=== PATIENT | female | born 1960 | race Caucasian/White ===

== ENCOUNTER 2020-02-15 16:54 | Inpatient (IN) | payer OTHER ==
[~2020-02-15] VITALS: Ht 157.5 cm; Wt 104.3 kg
--- NOTE | 2020-02-15 17:27 | NUR ---
Patient came in to the er c/o generalized weakness x 5 days and sensitivity to light, hypotensive E BUSINESS SPECIALIST. On room air, breathing evenly and unlabored. connected to the monitor and pulse ox. kept comfortable, will continue to monitor accordingly.
[2020-02-15] MEDS ORDERED: IV NS 0.9% 1,000 ML BAG IV ONE (17:30)
[2020-02-15 17:34] LABS: BASOPHILS % (AUTO) 0.4 % (0.0-2.0); EOSINOPHILS % (AUTO) 0.7 % (0.0-6.0); HEMATOCRIT 40 % (33-45); LYMPHOCYTES # (AUTO) 1.3 /CMM (0.8-4.8); LYMPHOCYTES % (AUTO) 24.1 % (20.0-44.0); MEAN CORPUSCULAR HGB CONC 33 g/dl (31.0-36.0); MEAN CORPUSCULAR VOLUME 99 fL (82-100); MONOCYTES # (AUTO) 0.7 /CMM (0.1-1.30); MONOCYTES % (AUTO) 12.9 % (2.0-12.0); NEUTROPHILS # (AUTO) 3.3 /CMM (1.8-8.9); NEUTROPHILS % (AUTO) 61.9 % (43.0-81.0); PLATELET COUNT (AUTO) 108 /CMM (150-450); RED BLOOD CELL COUNT(AUTO) 4.02 MIL/uL (4.0-5.2); WHITE BLOOD COUNT (AUTO) 5.3 K/uL (4.3-11.0)
[2020-02-15 17:44] LABS: CALCIUM, SERUM 9.5 mg/dL (8.5-10.1); CARBON DIOXIDE 22 mmol/L (21-32); CHLORIDE 97 mmol/L (98-107); CREATININE 3.2 mg/dL (0.6-1.3); GLUCOSE 88 mg/dL (74-106); POTASSIUM 3.6 mmol/L (3.5-5.1); SODIUM SERUM 136 mmol/L (136-145); UREA NITROGEN, BLOOD 50 mg/dL (7-18)
[2020-02-15 17:49] LABS: ALANINE AMINOTRANSFERASE 187 U/L (12-78); ALBUMIN 3.8 g/dL (3.4-5.0); ALKALINE PHOSPHATASE 158 U/L (46-116); ASPARTATE AMINOTRANSFERASE 315 U/L (15-37); BILIRUBIN,DIRECT 0.7 mg/dL (0.0-0.2); BILIRUBIN,TOTAL 1.2 mg/dL (0.2-1.0); TOTAL PROTEIN, SERUM 8.2 g/dL (6.4-8.2)
--- NOTE | 2020-02-15 18:14 | NUR ---
wheeled patient to ct scan
--- NOTE | 2020-02-15 18:19 | NUR ---
patient came back from ct
[2020-02-15 18:20] LABS: B-TYPE NATRIURETIC PEPTIDE 1142 PG/ML (0-125); MAGNESIUM 2.3 mg/dL (1.8-2.4); PHOSPHORUS 3.2 mg/dL (2.5-4.9)
[2020-02-15] MEDS ORDERED: TRAZ-252 PO (18:35)
[2020-02-15] MEDS ORDERED: ERGO500014 PO (18:35)
[2020-02-15] MEDS ORDERED: ACET-73 PO (18:35)
[2020-02-15] MEDS ORDERED: ATOR10TA PO (18:35)
[2020-02-15] MEDS ORDERED: GABA800T11 PO (18:35)
[2020-02-15] MEDS ORDERED: SERT100T12 PO (18:35)
[2020-02-15] MEDS ORDERED: LOSA100T31 PO (18:35)
[2020-02-15 18:50] LABS: SERUM AMMONIA 47 umol/L (11-32)
[2020-02-15] MEDS ORDERED: IV NS 0.9% 1,000 ML IV ONE (19:00)
[2020-02-15] MEDS ORDERED: PIPERACILLIN /TAZOBACTAM 3.375 G in IV D5W 50 ML IV ONE (19:00)
[2020-02-15] MEDS ORDERED: VANCOMYCIN HCL 1 GM in IV D5W 260 ML IV ONE (19:00)
--- NOTE | 2020-02-15 19:25 | NUR ---
CLINICALS AND MOVE PACKET TURNED IN.
--- NOTE | 2020-02-15 19:26 | NUR ---
CALL FROM LAB, COVID NEGATIVE.
[2020-02-15 19:49] LABS: APPEARANCE,URINE Slightly Cloudy (CLEAR); BILIRUBIN,URINE SMALL (NEGATIVE); BLOOD, URINE Large Ery/uL (NEGATIVE); COLOR,URINE Yellow (YELLOW); KETONES,URINE 15 (NEGATIVE); LEUKOCYTE ESTERASE ,URINE Trace (NEGATIVE); NITRITE, URINE Negative (NEGATIVE); PH,URINE 5.5 (5.0-8.0); PROTEIN,URINE >=300 mg/dl (NEGATIVE); UGLUCOSE Negative (NEGATIVE)
[2020-02-15 20:09] LABS: BACTERIA,URINE 2+ /HPF (None Seen)
[2020-02-15 20:11] LABS: CALCIUM OXALATE CRYSTALS,UR Few /HPF (None Seen); SQUAMOUS EPITHELIAL CELL,UR Moderate /HPF (None Seen); URINE AMORPHOUS URATE Few /HPF (None Seen)
--- NOTE | 2020-02-15 20:18 | NUR ---
CALLED NURSING SUP FOR BED
--- NOTE | 2020-02-15 20:20 | NUR ---
SPOKE WITH ADULT MANAGER SURJIT. ISAIAH'Jaden CHARLTON FOR PT TO STAY AT [facility]
--- NOTE | 2020-02-15 20:22 | NUR ---
NOTED HYPOTENSION. MARSII DEGRASSE, EMPLOYEE BENEFITS MANAGER MADE AWARE. PT AAOX4. RESTING COMFORTABLY IN BED. PT STILL ON MONITOR, WILL CONTINUE TO MONITOR
--- NOTE | 2020-02-15 20:50 | NUR ---
MYAH HUFFMAN AT BEDSIDE FOR EVALUATION
[2020-02-15] MEDS ORDERED: MISCELLANEOUS MED 1 EA EA PO PRN (21:30)
[2020-02-15] MEDS ORDERED: LACTULOSE 10 G/15 ML UDC (PYXIS) PO ONE (21:30)
[2020-02-16] VITALS (82 sets, daily range): BP systolic 80–140; BP diastolic 37–93
[2020-02-16] MEDS ORDERED: PIPERACILLIN /TAZOBACTAM 4.5 G in IV D5W 100 ML IV SCH ×2
--- NOTE | 2020-02-16 01:20 | NUR ---
BED ASSIGNMENT 256
--- NOTE | 2020-02-16 01:30 | NUR ---
REPORT GIVEN TO AYDEN HUERTA FOR CK
--- NOTE | 2020-02-16 01:50 | NUR ---
RECONSTRUCTIVE SURGEON NOTE PATIENT ARRIVED TO UNIT AROUND THIS TIME VIA VANITA. AWAKE, ALERT, ORIENTED X4. FULL CODE. DIAGNOSIS OF HYPOTENSION. BP IS 91/58 AT THIS TIME. RAPID COVID TEST IS NEGATIVE. ABLE TO MAKE NEEDS KNOWN. SPEECH IS CLEAR. PERRLA. PATIENT IS CALM AND COOPERATIVE. SKIN IS DRY AND WARM TO TOUCH, INTACT. AFEBRILE. CAPILLARY REFILL IS < 3 SECONDS. O2 SAT IS 100% ON ROOM AIR. BREATHING IS EVEN AND UNLABORED. LUNG SOUNDS ARE CLEAR. IV SITES ON LEFT HAND GAUGE 20 AND RAC GAUGE 18 IS CLEAN, PATENT, AND FLUSHED. PATIENT IS CONTINENT OF BOWEL AND BLADDER. COMMODE AT BEDSIDE. PATIENT HAS UTI DIAGNOSIS AT THIS TIME. PER ER REPORT, PATIENT IS AMBULATORY WITH MINIMAL ASSISTANCE. PATIENT IS ABLE TO DO ROM WITH NO DISCOMFORT. IN NO APPARENT DISTRESS NOTED AT THIS TIME. ORIENTED PATIENT TO ROOM, CALL LIGHT IS WITHIN EASY REACH. BED IS LOWERED AND LOCKED. WILL CONTINUE TO MONITOR.
--- NOTE | 2020-02-16 01:55 | NUR ---
PT TRANSFERRED TO ICU PER ACLS PROTOCOL
[2020-02-16] MEDS: IV NS 0.9% 1,000 ML IV SCH ×2 (02:27→12:12)
[2020-02-16] MEDS ORDERED: ZOSYN IVPB 2.25 G in IV D5W 50ml IV ONE (02:30)
--- NOTE | 2020-02-16 02:30 | NUR ---
MACHINE I TRIMMER NOTE - PT BELONGINGS NOTED PATIENT WITH $450.00 TAY AND TWO YELLOW RINGS. COUNTED MONEY WITH AYDEN [employer]OX WITNESS. MONEY PLACED IN DEPOSIT BAG AND STORED WITH PAYROLL CONSULTANT FOR SAFE KEEPING. BAG NUMBER IS [id number]. PATIENT REFUSED TO STORE 2 YELLOW RINGS IN DEPOSIT BAG. PATIENT VERBALIZED THAT THE TWO RINGS HOLD SENTIMENTAL VALUE AND WOULD LIKE TO KEEP THEM WITH HER.
[2020-02-16] MEDS ORDERED: LACTULOSE 10 G/15 ML UDC (PYXIS) ONE (02:41)
[2020-02-16] MEDS ORDERED: PIPERACILLIN /TAZOBACTAM 2.25 G VIAL IV ONE (02:41)
[2020-02-16] MEDS ORDERED: NOREPINEPHRINE 4 MG/4 ML AMPUL IV ONE (02:54)
[2020-02-16 05:24] LABS: BASOPHILS % (AUTO) 0.6 % (0.0-2.0); EOSINOPHILS % (AUTO) 2.1 % (0.0-6.0); HEMATOCRIT 37 % (33-45); LYMPHOCYTES # (AUTO) 1.3 /CMM (0.8-4.8); LYMPHOCYTES % (AUTO) 35.4 % (20.0-44.0); MEAN CORPUSCULAR HGB CONC 33 g/dl (31.0-36.0); MEAN CORPUSCULAR VOLUME 98 fL (82-100); MONOCYTES # (AUTO) 0.5 /CMM (0.1-1.30); MONOCYTES % (AUTO) 15.4 % (2.0-12.0); NEUTROPHILS # (AUTO) 1.6 /CMM (1.8-8.9); NEUTROPHILS % (AUTO) 46.5 % (43.0-81.0); PLATELET COUNT (AUTO) 80 /CMM (150-450); RED BLOOD CELL COUNT(AUTO) 3.77 MIL/uL (4.0-5.2); WHITE BLOOD COUNT (AUTO) 3.5 K/uL (4.3-11.0)
[2020-02-16 05:39] LABS: ALBUMIN 3.3 g/dL (3.4-5.0); CALCIUM, SERUM 8.2 mg/dL (8.5-10.1); CREATININE 2.1 mg/dL (0.6-1.3); PHOSPHORUS 2.5 mg/dL (2.5-4.9); TOTAL PROTEIN, SERUM 7.2 g/dL (6.4-8.2)
[2020-02-16 05:40] LABS: THYROID STIMULATING HORMONE 2.126 uIU/mL (0.358-3.74)
[2020-02-16] MEDS: NOREPINEPHRINE 8 MG in IV NS 0.9% 250 ML IV PRN ×2 (06:20→14:40)
--- NOTE | 2020-02-16 06:20 | NUR ---
RN NOTE LEVOPHED IV MED STARTED FOR BP 87/50. WILL CONTINUE TO MONITOR.
[2020-02-16 07:01] LABS: NEUTROPHILS % (MANUAL) 48 (42-76)
[2020-02-16 07:02] LABS: EOSINOPHILS % (MANUAL) 2 % (0-4); LYMPHOCYTES % (MANUAL) 36 % (16-48); MONOCYTES % (MANUAL) 14 % (0-11.0)
--- NOTE | 2020-02-16 07:18 | NUR ---
PEDIATRIC CLINICAL NURSE SPECIALIST NOTE PATIENT IS STABLE AT THIS TIME. RESTING, RESPONSIVE TO VERBAL AND TACTILE STIMULI. ON LEVOPHED RUNNING AT 0.1 MCG/KG/MIN. REPORT GIVEN TO ALEXIA HENSLEY FOR CONTINUATION OF CARE.
[2020-02-16] MEDS: ONDANSETRON HCL/PF 4 MG/2 ML VIAL IVP PRN (07:46)
--- NOTE | 2020-02-16 07:50 | NUR ---
ICU/RN PT IS RESTING IN THE BED ,ON ROOM AIR ,SAT O2-96%,ON LEVOPHED DRIP.AFEBRILE.NO PAIN REPORTED AT THIS TIME IV FLUIDS INFUSING ORDERED.PT USE BEDSIDE COMMODE.C/O OF NAUSEA .
[2020-02-16] MEDS: PANTOPRAZOLE 40 MG VIAL IV SCH (08:13)
[2020-02-16] MEDS: SERTRALINE HCL 50 MG TABLET PO SCH (08:13)
[2020-02-16] MEDS ORDERED: Thiamine 100 MG in IV D5W 50 ML IV SCH (09:00)
[2020-02-16] MEDS ORDERED: POTASSIUM CHLORIDE 20 MEQ TAB.PRT.SR PO ONE (09:00)
--- NOTE | 2020-02-16 09:00 | NUR ---
ICU/RN AM MEDS GIVEN ORDERED.ZOFRAN IV WAS GIVEN.LEVOPHED WAS STOP FOR SOME TIME.BP DECREASED .LEVOPHED DRIP RESTARTED.CONTINUE MONITORING
[2020-02-16] MEDS: MULTIVITAMINS,THERAGRAN 1 UDTAB TABLET PO SCH (09:17)
[2020-02-16] MEDS: FOLIC ACID 1 MG TABLET PO SCH (09:17)
[2020-02-16] MEDS: LORAZEPAM INJ 2 MG/ML VIAL IV PRN ×2 (10:17→20:46)
[2020-02-16] MEDS: PIPERACILLIN /TAZOBACTAM 2.25 G in IV D5W 50 ML IV SCH ×2 (10:17→17:47)
[2020-02-16] MEDS: HYDROCORTISONE SOD SUCCINATE 100 MG/2 ML VIAL IV SCH ×3 (10:27→20:46)
[2020-02-16] MEDS ORDERED: VANCOMYCIN 1.5 GM in IV D5W 500 ML IV ONE (11:00)
[2020-02-16] MEDS ORDERED: PIPERACILLIN /TAZOBACTAM 2.25 G in IV D5W 50 ML IV SCH (12:00)
--- NOTE | 2020-02-16 20:00 | NUR ---
RN OPENING NOTE PT RECEIVED IN THE BED. PT IS A/A/O X4, ON RA SATING 94%. PT IS ON LEVOPHED O.O5 MCG/KG/MIN RUNNING.SAFETY MEASURES IN PLACE CALL LIGHT IN REACH, BED AT LOWEST POSITION, SIDE RAILS UP X2.
--- NOTE | 2020-02-16 21:00 | NUR ---
RN NOTE LEVOPHED TITRATED DOWN FROM 0.05 MCG/KG/MIN TO 0.03 MCG/KG/MIN.
[2020-02-16] MEDS ORDERED: ATORVASTATIN 10 MG TABLET PO SCH (22:00)
[2020-02-17] VITALS (42 sets, daily range): BP systolic 82–168; BP diastolic 36–112
[2020-02-17] MEDS: PIPERACILLIN /TAZOBACTAM 2.25 G in IV D5W 50 ML IV SCH ×2 (00:33→06:06)
[2020-02-17] MEDS: IV NS 0.9% 1,000 ML IV SCH ×2 (01:52→12:41)
[2020-02-17] MEDS: LORAZEPAM INJ 2 MG/ML VIAL IV PRN ×3 (03:36→21:50)
[2020-02-17 05:09] LABS: BASOPHILS % (AUTO) 0.2 % (0.0-2.0); EOSINOPHILS % (AUTO) 0.2 % (0.0-6.0); HEMATOCRIT 36 % (33-45); HEMOGLOBIN 11.9 g/dL (11.5-14.8); LYMPHOCYTES # (AUTO) 0.4 /CMM (0.8-4.8); LYMPHOCYTES % (AUTO) 13.3 % (20.0-44.0); MEAN CORPUSCULAR HGB CONC 33 g/dl (31.0-36.0); MEAN CORPUSCULAR VOLUME 97 fL (82-100); MONOCYTES # (AUTO) 0.2 /CMM (0.1-1.30); MONOCYTES % (AUTO) 7.6 % (2.0-12.0); NEUTROPHILS # (AUTO) 2.1 /CMM (1.8-8.9); NEUTROPHILS % (AUTO) 78.7 % (43.0-81.0); PLATELET COUNT (AUTO) 73 /CMM (150-450); RED BLOOD CELL COUNT(AUTO) 3.69 MIL/uL (4.0-5.2); WHITE BLOOD COUNT (AUTO) 2.6 K/uL (4.3-11.0)
[2020-02-17 05:18] LABS: APPEARANCE,URINE SL CLOUDY (CLEAR); BILIRUBIN,URINE NEGATIVE (NEGATIVE); BLOOD, URINE SMALL Ery/uL (NEGATIVE); COLOR,URINE YELLOW (YELLOW); KETONES,URINE NEGATIVE (NEGATIVE); LEUKOCYTE ESTERASE ,URINE TRACE (NEGATIVE); NITRITE, URINE NEGATIVE (NEGATIVE); PROTEIN,URINE TRACE mg/dl (NEGATIVE); UGLUCOSE 500 MG/DL mg/dL (NEGATIVE); UROBILINOGEN,URINE 0.2 EU/dL (0.2)
[2020-02-17] MEDS: HYDROCORTISONE SOD SUCCINATE 100 MG/2 ML VIAL IV SCH ×3 (05:34→21:31)
[2020-02-17 05:37] LABS: ALBUMIN 3.2 g/dL (3.4-5.0); BILIRUBIN,TOTAL 0.9 mg/dL (0.2-1.0); CALCIUM, SERUM 8.7 mg/dL (8.5-10.1); CREATININE 1.4 mg/dL (0.6-1.3); MAGNESIUM 1.6 mg/dL (1.8-2.4); PHOSPHORUS 1.2 mg/dL (2.5-4.9); TOTAL PROTEIN, SERUM 7.3 g/dL (6.4-8.2)
[2020-02-17 05:37] LABS: CREATININE, URINE 39.7 MG/DL (30.0-125.0); URINE TOTAL PROTEIN 56.6 mg/dL (0-11.9)
[2020-02-17 06:10] LABS: BACTERIA,URINE Few /HPF (None Seen); EOSINOPHIL,URINE None Seen; SQUAMOUS EPITHELIAL CELL,UR Moderate /HPF (None Seen)
[2020-02-17 06:14] LABS: LYMPHOCYTES % (MANUAL) 12 % (16-48); NEUTROPHILS % (MANUAL) 77 (42-76)
[2020-02-17 06:15] LABS: EOSINOPHILS % (MANUAL) 3 % (0-4); MONOCYTES % (MANUAL) 8 % (0-11.0)
--- NOTE | 2020-02-17 07:15 | NUR ---
RN CLOSING NOTE PT REMAINED STABLE DURING MY SHIFT. REPORT GIVEN TO INCOMING SHIFT FOR CK.
--- NOTE | 2020-02-17 08:00 | NUR ---
RN OPENING NOTES RECEIVED PATIENT SLEEPING IN BED COMFORTABLY, DID NOT WANT TO BE DISRUPTED. PT IS AOX4, VERBAL, AND AMBULATORY WITH REST. TELE MONITOR SHOWING SR SB SHE IS ON 2L OF OXYGEN VIA NC, SATING AT 96%, NO RESP DISTRESS OR SOB PRESENT. SKIN IS INTACT. IV SITES ON ASHKAN PICC AND L HAND 20 G ARE PATENT AND INTACT, INFUSING NS AT 75 ML.HR. SAFETY MEASURES HAVE BEEN IMPLEMENTED, CALL LIGHT IS WITHIN REACH, BED IS IN LOWEST AND LOCKED POSITION, SIDE RIALS UP X2, WILL CONTINUE TO MONITOR FOR ANY CHANGES.
[2020-02-17] MEDS: SERTRALINE HCL 50 MG TABLET PO SCH (08:53)
[2020-02-17] MEDS: PANTOPRAZOLE 40 MG VIAL IV SCH (08:53)
[2020-02-17] MEDS: FOLIC ACID 1 MG TABLET PO SCH (08:53)
[2020-02-17] MEDS: THIAMINE HCL 100 MG TABLET PO SCH (08:53)
[2020-02-17] MEDS: MULTIVITAMINS,THERAGRAN 1 UDTAB TABLET PO SCH (08:53)
[2020-02-17] MEDS: Magnesium 1GM/D5W 100ML PREMIX 100 ML IV SCH ×2 (09:43→11:21)
[2020-02-17] MEDS: NEUTRA PHOS 1 POWD.PACKET PO SCH ×2 (09:47→16:33)
--- NOTE | 2020-02-17 10:00 | NUR ---
RN NOTES RECEIVED PT FROM AYDEN TONEY. PT A/O. ON 02 VIA MN. HOB ELEVATED. NO RESPIRATORY DISTRESS NOTED. NO SOB NOTED. PT COMFORTABLE. WILL TAKE OVER PT'S CARE. PT COMFORTABLE
--- NOTE | 2020-02-17 10:26 | NUR ---
RN NOTES GAVE HAND OFF REPORT TO MATT HENSLEY FOR CK
[2020-02-17] MEDS: ONDANSETRON HCL/PF 4 MG/2 ML VIAL IVP PRN (11:51)
[2020-02-17] MEDS: PIPERACILLIN /TAZOBACTAM 3.375 G in IV D5W 100 ML IV SCH ×2 (12:41→21:31)
--- NOTE | 2020-02-17 18:38 | NUR ---
RN CLOSING NOTES NO SIGNIFICANT CHANGE NOTED. KEPT CLEAN AND DRY. ABLE TO REPOSITION SELF. ALL NEEDS ATTENDED AND MET. CALL LIGHT WITHIN REACH. WILL ENDORSE FOR CONTINUITY OF CARE.
--- NOTE | 2020-02-17 19:24 | NUR ---
TRANSPORTATION MECHANIC OPENING NOTES: Rec'd pt resting in bed, A&Ox4. On 2LPM NC tolerating well. No SOB or resp distress noted at this time. SR on tele monitor. LH #20 and ASHKAN PICC line patent and flushed. Dressings c/d/i. NS infusing at 75ml/hr. Pt ambulatory to bedside commode. No pain reported at this time. Safety measures in place. Will continue to monitor.
--- NOTE | 2020-02-17 20:24 | NUR ---
RN NOTE: Report given to AYDEN See for CK.
--- NOTE | 2020-02-17 20:54 | NUR ---
RN NOTE: Pt transferred to room 307-1 via ACLS protocol in stable condition.
--- NOTE | 2020-02-17 21:00 | NUR ---
TELE/ACADEMIC INTERN NOTES RECEIVED PATIENT FROM ICU TRANSFER ON BED, ALERT, ORIENTED X3, ABLE TO VERBALIZE NEEDS, RESPSIRATIONS EVEN AND UNLABORED, ON OXYGEN VIA NC AT 2 LITER, REPORTED HEADACHE AND NEEDED ATIVAN, REPORTED HAD ALCOHOL INTOXICATION AND NEEDED ATIVAN FOR S/S OF INABILITY TO RELAX. PATIENT SKIN WARM TO TOUCH, BELONGINGS CHECKES, ON PICLINE IN ASHKAN 3 LUMEN, FLUSHED FOR PATENCY. RECEIVED REPORT FROM MEDIA RELATIONS COORDINATOR. TO MONITOR. BED LOCKED, OFFERED AND PROVIDED SNACKS.
[2020-02-17] MEDS: ACETAMINOPHEN 325 MG TABLET PO PRN (21:38)
[2020-02-18] VITALS: BP 155/78
[2020-02-18] MEDS: IV NS 0.9% 1,000 ML IV SCH ×2 (02:50→16:10)
[2020-02-18 04:00] VITALS: BP 155/79
[2020-02-18] MEDS: PIPERACILLIN /TAZOBACTAM 3.375 G in IV D5W 100 ML IV SCH ×2 (04:25→12:34)
[2020-02-18] MEDS: HYDROCORTISONE SOD SUCCINATE 100 MG/2 ML VIAL IV SCH ×3 (04:25→20:11)
[2020-02-18] MEDS ORDERED: VANCOMYCIN 1.5 GM in IV D5W 500ml IV ONE (06:00)
--- NOTE | 2020-02-18 06:16 | NUR ---
307-1 TELE/RN NOTES SINUS RYTHM AT 70'S PATIENT ABLE TO SLEEP DURING THE NIGHT, ATTENDED ALL NEEDS, KEPT COMFORTABLE. MONITORED FOR ANY PAIN, SOB AND SAFETY MEASURES FOLLOWED. BED LOCKED, CALL LIGHTS WITHIN REACH, WILL MONITOR. WILL ENDORSE TO AM RN FOR CK.
[2020-02-18 06:33] LABS: EOSINOPHILS % (AUTO) 0.1 % (0.0-6.0); HEMATOCRIT 35 % (33-45); HEMOGLOBIN 11.7 g/dL (11.5-14.8); LYMPHOCYTES # (AUTO) 0.4 /CMM (0.8-4.8); LYMPHOCYTES % (AUTO) 11.9 % (20.0-44.0); MEAN CORPUSCULAR HGB CONC 34 g/dl (31.0-36.0); MEAN CORPUSCULAR VOLUME 96 fL (82-100); MONOCYTES # (AUTO) 0.3 /CMM (0.1-1.30); MONOCYTES % (AUTO) 8.7 % (2.0-12.0); NEUTROPHILS # (AUTO) 2.5 /CMM (1.8-8.9); NEUTROPHILS % (AUTO) 79.3 % (43.0-81.0); PLATELET COUNT (AUTO) 77 /CMM (150-450); RED BLOOD CELL COUNT(AUTO) 3.59 MIL/uL (4.0-5.2); WHITE BLOOD COUNT (AUTO) 3.2 K/uL (4.3-11.0)
--- NOTE | 2020-02-18 07:15 | NUR ---
MOLD WASHER OPENING NOTES RECEIVED PT ON BED. A/O X4. ON 2L O2 VIA NC WITH 98% SATURATION. NO SOB OR ACUTE RESPIRATORY DISTRESS NOTED. WITH L HAND #20 INTACT, PATENT AND FLUSHED. NS RUNNING @ 75ML/HR, INFUSING WELL. ASHKAN PICC LINE INTACT, PATENT AND FLUSHED. AMBULATORY WITH ASSIST. NO PAIN NOTED AT THIS TIME. SAFETY MEASURES OBSERVED. CALL LIGHT WITHIN REACH. BED LOCKED AND AT LOWEST POSITION. WILL CONTINUE TO MONITOR
[2020-02-18 08:00] VITALS: BP 139/90
[2020-02-18 08:06] LABS: CREATININE KINASE (CK),MB 3.7 ng/mL (0.0-5.3); PTH, INTACT 180 pg/mL (15-65)
[2020-02-18 08:39] LABS: ALBUMIN 2.9 g/dL (3.4-5.0); BILIRUBIN,TOTAL 0.7 mg/dL (0.2-1.0); CALCIUM, SERUM 8.6 mg/dL (8.5-10.1); CREATININE 1.1 mg/dL (0.6-1.3); PHOSPHORUS 1.4 mg/dL (2.5-4.9); POTASSIUM 3.6 mmol/L (3.5-5.1); TOTAL PROTEIN, SERUM 6.8 g/dL (6.4-8.2)
[2020-02-18] MEDS: SERTRALINE HCL 50 MG TABLET PO SCH (08:51)
[2020-02-18] MEDS: MULTIVITAMINS,THERAGRAN 1 UDTAB TABLET PO SCH (08:51)
[2020-02-18] MEDS: PANTOPRAZOLE 40 MG VIAL IV SCH (08:51)
[2020-02-18] MEDS: FOLIC ACID 1 MG TABLET PO SCH (08:52)
[2020-02-18] MEDS: THIAMINE HCL 100 MG TABLET PO SCH (08:54)
[2020-02-18] MEDS ORDERED: POTASSIUM PHOSPHATE MM 15 MMOL in IV NS 0.9% 250 ML IV SCH (11:00)
[2020-02-18 12:00] VITALS: BP 138/85
[2020-02-18 15:18] LABS: *SPE A/G RATIO 1.2 (0.7-1.7); *SPE ALBUMIN 3.6 g/dL (2.9-4.4); *SPE ALPHA-1-GLOBULIN 0.2 g/dL (0.0-0.4); *SPE ALPHA-2-GLOBULIN 0.9 g/dL (0.4-1.0); *SPE BETA GLOBULIN 0.8 g/dL (0.7-1.3); *SPE GLOBULIN, TOTAL 3.1 g/dL (2.2-3.9); *SPE M-SPIKE Not Observed g/dL (Not Observed); *SPEGAMMA GLOBULIN 1.2 g/dL (0.4-1.8)
[2020-02-18 16:00] VITALS: BP_SYST 140; BP_SYST 162; BP_DIAS 85; BP_DIAS 90
--- NOTE | 2020-02-18 19:21 | NUR ---
LENS GRINDER CLOSING NOTES RECEIVED PT ON BED. A/O X4. ON 2L O2 VIA NC WITH 98% SATURATION. NO SOB OR ACUTE RESPIRATORY DISTRESS NOTED. WITH L HAND #20 INTACT, PATENT AND FLUSHED. NS RUNNING @ 75ML/HR, INFUSING WELL. ASHKAN PICC LINE INTACT, PATENT AND FLUSHED. AMBULATORY. NO PAIN NOTED AT THIS TIME. ALL MEDS GIVEN ORDERED. ALL NEEDS ATTENDED. SAFETY MEASURES OBSERVED. CALL LIGHT WITHIN REACH. BED LOCKED AND AT LOWEST POSITION. WILL ENDORSE TO CARE ATTENDANT FOR CK
--- NOTE | 2020-02-18 19:40 | NUR ---
MS RN NOTE: Patient in bed awake, alert, and oriented x4. Patient able to make needs known. PICC line access noted on left upper arm. On room air and breathing well, no SOB, no respiratory distress noted. Oxygen 2L nasal canula on side PRN. Safety precaution in place, bed is in the lowest level, bed is locked, side rails x2 are up, and call light is within reach. Will continue to monitor.
[2020-02-18 20:00] VITALS: BP 154/62
[2020-02-18] MEDS ORDERED: LEVOFLOXACIN (250MG) 250 MG TABLET PO SCH (20:00)
[2020-02-18] MEDS: LORAZEPAM INJ 2 MG/ML VIAL IV PRN (20:11)
--- NOTE | 2020-02-18 20:11 | NUR ---
MS RN NOTE: Patient verbalizes anxiety. Administered PRN Ativan per MD order. Will continue to monitor.
[2020-02-18] MEDS: ACETAMINOPHEN 325 MG TABLET PO PRN (23:54)
--- NOTE | 2020-02-18 23:54 | NUR ---
MS RN NOTE: Patient complains of aching pain on her back. Patient rates pain a 3 on a 0-10 numerical scale. Administered PRN tylenol per MD order. Will continue to monitor.
[2020-02-19] MEDS: IV NS 0.9% 1,000 ML IV SCH (05:15)
[2020-02-19] MEDS: LORAZEPAM INJ 2 MG/ML VIAL IV PRN ×2 (05:15→16:30)
[2020-02-19] MEDS: HYDROCORTISONE SOD SUCCINATE 100 MG/2 ML VIAL IV SCH (05:15)
--- NOTE | 2020-02-19 05:15 | NUR ---
MS RN NOTE: Patient verbalizes feeling anxiety. Administered PRN ativan per MD order. Will continue to monitor.
--- NOTE | 2020-02-19 06:47 | NUR ---
MS RN CLOSING NOTE: Patient in bed sleeping comfortably. Patient breathing well on room air. No SOB or acute respiratory distress noted. Safety precaution in place, bed is in the lowest level, bed is locked, side rails x2 are up, and call light is within reach. Will endorse to next shift.
[2020-02-19 07:23] LABS: BASOPHILS % (AUTO) 0.1 % (0.0-2.0); EOSINOPHILS % (AUTO) 0.2 % (0.0-6.0); HEMATOCRIT 35 % (33-45); HEMOGLOBIN 11.7 g/dL (11.5-14.8); LYMPHOCYTES # (AUTO) 0.6 /CMM (0.8-4.8); LYMPHOCYTES % (AUTO) 17.6 % (20.0-44.0); MEAN CORPUSCULAR HGB CONC 33 g/dl (31.0-36.0); MEAN CORPUSCULAR VOLUME 96 fL (82-100); MONOCYTES # (AUTO) 0.3 /CMM (0.1-1.30); MONOCYTES % (AUTO) 10.5 % (2.0-12.0); NEUTROPHILS # (AUTO) 2.4 /CMM (1.8-8.9); NEUTROPHILS % (AUTO) 71.6 % (43.0-81.0); PLATELET COUNT (AUTO) 99 /CMM (150-450); RED BLOOD CELL COUNT(AUTO) 3.67 MIL/uL (4.0-5.2); WHITE BLOOD COUNT (AUTO) 3.3 K/uL (4.3-11.0)
[2020-02-19] MEDS ORDERED: PANTOPRAZOLE 40 MG TABLET.DR PO SCH (07:30)
[2020-02-19 07:52] LABS: CALCIUM, SERUM 8.5 mg/dL (8.5-10.1); MAGNESIUM 1.7 mg/dL (1.8-2.4); PHOSPHORUS 1.3 mg/dL (2.5-4.9); POTASSIUM 3.9 mmol/L (3.5-5.1)
[2020-02-19 08:00] VITALS: BP 172/100
--- NOTE | 2020-02-19 08:00 | NUR ---
MS/RN - Assessment Patient is alert and oriented x 4, denies pain, afebrile, on supplemental oxygen at 2lpm via NC, no apparent distress. IVF NS at 75 ml/hr infusing well on the ASHKAN PICC with no signs of infiltration. Skin is intact, ambulates with steady gait. Morning labs reviewed, noted with phosphorus 1.3 and magnesium 1.7, will notify MD. All needs attended. Will continue with current medical management.
[2020-02-19] MEDS: FOLIC ACID 1 MG TABLET PO SCH (08:33)
[2020-02-19] MEDS: MULTIVITAMINS,THERAGRAN 1 UDTAB TABLET PO SCH (08:33)
[2020-02-19] MEDS: THIAMINE HCL 100 MG TABLET PO SCH (08:33)
[2020-02-19] MEDS: SERTRALINE HCL 50 MG TABLET PO SCH (08:33)
[2020-02-19] MEDS ORDERED: Levofloxacin (250MG) PO (10:00)
[2020-02-19] MEDS: NEUTRA PHOS 1 POWD.PACKET PO SCH ×2 (10:19→16:30)
[2020-02-19] MEDS: Magnesium 1GM/D5W 100ML PREMIX 100 ML IV SCH ×2 (10:20→11:32)
[2020-02-19] MEDS: ACETAMINOPHEN 325 MG TABLET PO PRN (16:37)
[2020-02-19 17:32] VITALS: BP 152/78
--- NOTE | 2020-02-19 19:00 | NUR ---
MS/RN - Discharge Patient is alert and oriented, discharged home in stable condition, remain afebrile, denies pain, not in any form of distress, stable on room air, phosphorus and magnesium replacement given, ambulates with steady gait. Reviewed discharge instructions with patient and she verbalized full understanding of all teachings including medications, follow-up care with PCP in 1-2 weeks. Electronic prescription was sent to her preferred pharmacy. Patient was advised to seek immediate medical attention for worsening symptoms, chest pain, shortness of breath, palpitations, abdominal pain/distention, intractable nausea and vomiting, diarrhea, weakness, loss of consciousness, neurological deficit, or any other emergent concerns. All belongings with patient and she deny any missing items. ASHKAN PICC line removed with catheter tip intact, no redness, no swelling noted at the site. Discharge paperwork signed and copies were given per protocol. Accompanied to the lobby and transported by private car.
[2020-02-21] MEDS ORDERED: ERGOCALCIFEROL (VITAMIN D 2) 50,000 UNIT CAPSULE PO SCH (09:00)
== END 2020-02-19 18:55 | disposition home or self-care (01) | DRG 720 ==
LOC: ER 16:58 → ICU 02-16 01:34 → TELE 02-17 20:38 → MED 02-18 11:09
PROVIDERS: ADMIT Registered Nurse; ATTEND Internal Medicine
PROC: B548ZZA Ultrasonography of Superior Vena Cava, Guidance (ICD-10-PCS; principal; 2020-02-18)
PROC: 02HV33Z Insertion of Infusion Device into Superior Vena Cava, Percutaneous Approach (ICD-10-PCS; principal; 2020-02-18)
DX: A41.9 Sepsis, unspecified organism (principal); K74.60 Unspecified cirrhosis of liver; N39.0 Urinary tract infection, site not specified; K72.10 Chronic hepatic failure without coma; G92 Toxic encephalopathy; R65.21 Severe sepsis with septic shock; N17.0 Acute kidney failure with tubular necrosis; K70.10 Alcoholic hepatitis without ascites; D61.818 Other pancytopenia; N13.9 Obstructive and reflux uropathy, unspecified; I50.9 Heart failure, unspecified; I11.0 Hypertensive heart disease with heart failure; E78.00 Pure hypercholesterolemia, unspecified; E78.5 Hyperlipidemia, unspecified; D63.8 Anemia in other chronic diseases classified elsewhere; F43.10 Post-traumatic stress disorder, unspecified; Z79.899 Other long term (current) drug therapy; E66.01 Morbid (severe) obesity due to excess calories; Z68.41 Body mass index [BMI] 40.0-44.9, adult; E72.20 Disorder of urea cycle metabolism, unspecified; E86.0 Dehydration; E87.2 Acidosis; F10.10 Alcohol abuse, uncomplicated; Y90.9 Presence of alcohol in blood, level not specified; D69.6 Thrombocytopenia, unspecified; E86.9 Volume depletion, unspecified; D72.819 Decreased white blood cell count, unspecified; B96.20 Unspecified Escherichia coli [E. coli] as the cause of diseases classified elsewhere; E11.65 Type 2 diabetes mellitus with hyperglycemia; E21.3 Hyperparathyroidism, unspecified
CPT/HCPCS: 36415; 36569; 70450-TC; 71045-TC; 76700-TC; 80048-TC; 80053-TC; 80061-TC; 80076-TC; 80202-TC; 81000-TC; 82140-TC; 82533; 82550-TC; 82553; 82570-TC; 83605-TC; 83735-TC; 83880; 83970; 84100-TC; 84155; 84155-TC; 84165; 84300-TC; 84443-TC; 84484-TC; 85025-TC; 85730-TC; 86850-TC; 87040-TC; 87081-TC; 87086-TC; 87186-TC; 93307-TC; C1751; C9113; C9803-CS; G0378; J1720; J2060; J2405; J2543; J3370; J3411; J3475; J3490; J7030; J7050; J7060

== ENCOUNTER 2020-02-21 20:12 | Emergency (ER) | payer OTHER ==
[~2020-02-21] VITALS: Ht 157.5 cm; Wt 102.1 kg
[~2020-02-21 20:12] MED LIST: ACET-73 PO; ATOR10TA PO; ERGO500014 PO; GABA800T11 PO; LOSA100T31 PO; Levofloxacin (250MG) PO; SERT100T12 PO; TRAZ-252 PO
[2020-02-21 20:26] VITALS: BP 161/78
[2020-02-21] MEDS ORDERED: MAG HYDROX/AL HYDROX/SIMETH 30 ML UDC PO ONE (21:00)
[2020-02-21] MEDS ORDERED: ACETAMINOPHEN ES 500 MG TABLET PO ONE (21:00)
[2020-02-21] MEDS ORDERED: ONDANSETRON HCL/PF 4 MG/2 ML VIAL IM ONE (21:00)
[2020-02-21] MEDS ORDERED: LIDOCAINE VISCOUS 2% UD 15 ML UDC MM ONE (21:00)
[2020-02-21] MEDS ORDERED: ONDANSETRON HCL/PF 4 MG/2 ML VIAL ONE (21:09)
[2020-02-21] MEDS ORDERED: MAG HYDROX/AL HYDROX/SIMETH 30 ML UDC ONE (21:09)
[2020-02-21] MEDS ORDERED: LIDOCAINE VISCOUS 2% UD 15 ML UDC ONE (21:09)
[2020-02-21] MEDS ORDERED: ACETAMINOPHEN ES 500 MG TABLET ONE (21:10)
--- NOTE | 2020-02-21 21:45 | NUR ---
Patient discharged to home in stable condition. Written and verbal after care instructions given. Patient verbalizes understanding of instruction.
== END 2020-02-21 21:46 | disposition home or self-care (01) ==
LOC: ER 20:12
DX: N39.0 Urinary tract infection, site not specified (principal); I10 Essential (primary) hypertension; F43.10 Post-traumatic stress disorder, unspecified; D64.9 Anemia, unspecified; E78.5 Hyperlipidemia, unspecified; Z79.899 Other long term (current) drug therapy
CPT/HCPCS: 99283; J2405